=== PATIENT | male | born 1970 | race American Indian/Alaskan Native ===

== ENCOUNTER 2019-07-01 07:57 | Day surgery (SDC) | payer OTHER ==
[~2019-07-01 07:57] MED LIST: SODIUM CHLORIDE 0.9% 1000 ML 1,000 ML IV SCH
[2019-07-01] MEDS ORDERED: WATER FOR IRRIG STERILE 250 ML BOTTLE IR ONE (09:34)
--- NOTE | 2019-07-01 09:43 | Anesthesia Consultation ---
Anesthesia Consult and Med Hx Date of service: 07/01/19 - Airway Anesthetic Teeth Evaluation: Good ROM Head & Neck: Adequate Mental/Hyoid Distance: Inadequate Mallampati Class: Class III Intubation Access Assessment: Possibly Difficult - Pre-Operative Health Status ASA Pre-Surgery Classification: ASA2 Proposed Anesthetic Plan: MAC - Pulmonary Hx Smoking: Yes (Occasional cigar) Hx Sleep Apnea: Yes (Uses CPAP) - Cardiovascular System Hx Hypertension: Yes - Central Nervous System Hx Psychiatric Problems: Yes (Anxiety, depression) - Other Systems Hx Obesity: Yes
--- NOTE | 2019-07-01 09:44 | Anesthesia Day of Surgery ---
Anesthesia Day of Surgery - Day of Surgery Patient Examined: Yes Patient H&P Reviewed: Yes Patient is NPO: Yes
[2019-07-01] MEDS ORDERED: PROPOFOL 200 MG/20 ML VIAL IV ONE ×3 (09:47→10:03)
--- NOTE | 2019-07-01 10:23 | Procedure Note ---
Date of procedure: 07/01/19 Pre-op diagnosis: GERD/ Colon Polyp Screeing/ F/H/O Cancer (mother-lymphoma) Post-op diagnosis: other (Moderate,Erosive,Esophagitis/Gastritis/Normal Colon and Normal Ileal Mucosa (no colon polyp or diverticular disease noted).) Procedure: EGD with Biopsy and colonoscopy Anesthesia: [facility] [place] Surgeon: KARLY DIAZ Estimated blood loss: minimal Pathology: list Specimen disposition: to lab Condition: stable Disposition: same day (Treat with PPI. Advice patient to avoid tobacco and alco hol products. Avoid aspirin and NSAID for 4 days; to resume home medication. Treat with PPI and follow up in 1 to 2 weeks ([phone]).)
--- NOTE | 2019-07-01 10:28 | Operative Report ---
PROCEDURE: Esophagogastroduodenoscopy. INDICATIONS: This is a 48-year-old slightly obese -[place] gentleman who has been having GERD symptoms. He does have a history of drinking alcohol and smoking cigars. EGD was done to assess for the severity of his problem. DESCRIPTION OF PROCEDURE: Procedure was done after getting informed consent with MAC anesthesia. Instrument was passed through the hypopharynx into the esophagus, which showed moderate erosive esophagitis. The stomach showed gastric erosion and gastritis, most pronounced in the antrum and the pylorus was patent. The duodenum in the first and second portion appeared normal. Biopsy was done from the distal esophagus to assess for the severity of the erosive esophagitis. Additional biopsy was also done from the gastric antrum, gastric body and angular incisura to rule out for H. pylori and atrophic gastritis. There was minimal bleeding associated with the procedure. No complications associated with the procedure. Procedure was done in the GI lab with the assistance of the GI lab team, which included LATISHA, Hansa Han; Wilfrid abbott and with the assistance of anesthesia. The patient is also to have a colonoscopy done as part of colon polyp screening. ASSESSMENT: Gastroesophageal reflux disease symptoms, moderate erosive esophagitis, gastritis, gastric erosion. There was minimal bleeding associated with the procedure. The patient will be asked to avoid aspirin and aspirin-related products for the next few days, but otherwise resume home medication. The patient will be treated with PPI and a colonoscopy will be done as part of colon polyp screening with advice for the patient to follow up in the office in 1-2 weeks' time. [facility]# [id number] DELFINA/PARAM
--- NOTE | 2019-07-01 10:28 | Operative Report ---
PROCEDURE: Colonoscopy. INDICATIONS: The patient is a 48-year-old obese -[place] gentleman with a family history of cancer. The patient's mother had lymphoma. Colonoscopy was done as part of colon polyp screening. EGD done prior to the colonoscopy, which showed moderate erosive esophagitis, gastric erosion and gastritis. DESCRIPTION OF PROCEDURE: Colonoscopy was done with MAC anesthesia. Initial rectal exam was unremarkable. Instrument was passed through the rectum onto the cecum, which was identified with ileocecal valve and appendiceal orifice. The terminal ileum was intubated, showed normal mucosa. Visualization was fair to good. Cecum, ascending colon, transverse colon, descending colon, and sigmoid showed normal mucosa. There was no evidence of any polyps, colitis or diverticular disease and the rectum appeared normal on the retroverted view. ASSESSMENT: Colon polyp screening, family history of cancer. The patient's mother had lymphoma. Normal colon. No colon polyps or diverticular disease noted. No internal hemorrhoids and normal ileal mucosa. PLAN: To treat the patient with PPI because of the EGD findings of moderate erosive esophagitis, gastritis and gastric erosion. Advised the patient to refrain from smoking and alcohol use. Avoid aspirin and aspirin-related products for the next 4 days, otherwise resume home medication. Follow up in the office in 1-2 weeks' time. Procedure was done in the GI lab with assistance of the GI lab team, which included Hansa GOOD; Wilfrid abbott and with assistance of anesthesia. JOB# [id number] DELFINA/PARAM
[2019-07-01 10:49] VITALS: BP 136/91
--- NOTE | 2019-07-01 11:51 | Post Anesthesia Evaluation ---
- Post Anesthesia Evaluation Patient Participated: Yes Airway Patent: Yes Stable Respiratory Function: Yes Nausea/Vomiting: No Temp > 96.8F: Yes Pain Manageable: Yes Adequeate Hydration: Yes Anesthesia Complications: No Block Receding Appropriately: Not Applicable Patient on Ventilator: No
== END 2019-07-01 07:58 | disposition home or self-care (01) ==
LOC: GIO 07:57
DX: Z12.11 Encounter for screening for malignant neoplasm of colon (principal); K21.0 Gastro-esophageal reflux disease with esophagitis; K31.89 Other diseases of stomach and duodenum; K29.70 Gastritis, unspecified, without bleeding; G47.30 Sleep apnea, unspecified; E66.9 Obesity, unspecified; F41.9 Anxiety disorder, unspecified; F32.9 Major depressive disorder, single episode, unspecified; Z86.010 Personal history of colon polyps; Z87.891 Personal history of nicotine dependence; Z80.0 Family history of malignant neoplasm of digestive organs; Z79.82 Long term (current) use of aspirin; Z79.899 Other long term (current) drug therapy; Z98.890 Other specified postprocedural states; Z68.41 Body mass index [BMI] 40.0-44.9, adult
CPT/HCPCS: 43239; 45378; 88305; 88342; J2704; J7030